=== PATIENT | male | born 1945 | race Caucasian/White ===

== ENCOUNTER 2020-09-27 10:06 | Day surgery (SDC) | payer MEDICARE, OTHER ==
[~2020-09-27] VITALS: Ht 177.8 cm; Wt 81.8 kg
[~2020-09-27 10:06] MED LIST: ASPI-496 PO; CARV12.543 PO; CARV6.2512 PO; CEPH-368 PO; CLOP75TA PO; CYAN1TAB29 PO; FURO20TA3 PO; METF10002 PO; OXYC1TAB7 PO; QUIN1POW PO; SIMV40TA PO; SPIR25TA5 PO; VALS40TA2 PO
[2020-09-27] MEDS ORDERED: ONDANSETRON 2MG/ML, 2ML ONE (10:10)
[2020-09-27] MEDS ORDERED: CEFAZOLIN 1,000 MG ONE ×2 (10:10→12:13)
[2020-09-27] MEDS ORDERED: SODIUM CHLORIDE 0.9% 1,000 ML IV SCH (11:00)
[2020-09-27] MEDS ORDERED: RABE20TA29 PO (11:17)
[2020-09-27] MEDS ORDERED: GLUC15006 PO (11:17)
[2020-09-27] MEDS ORDERED: METANIX PO (11:17)
[2020-09-27] MEDS ORDERED: LMEF1TAB2 PO (11:17)
[2020-09-27] MEDS ORDERED: METF10007 PO (11:17)
[2020-09-27 11:21] VITALS: BP 106/57
[2020-09-27 11:32] LABS: BASOPHILS % (AUTO) 1 % (0-1); EOSINOPHILS % (AUTO) 3 % (1-7); LYMPHOCYTES % (AUTO) 21 % (22-44); MEAN CORPUSCULAR HEMOGLOBIN 31.4 pg (27.5-34.5); MEAN CORPUSCULAR HGB CONC 33.5 g/dL (33.2-36.2); MEAN PLATELET VOLUME 8.1 fL (7.4-10.4); MONOCYTES % (AUTO) 9 % (2-9); NEUTROPHILS % (AUTO) 67 % (42-75); PLATELET COUNT 226 x10^3/uL (130-400); RED BLOOD COUNT 4.22 x10^6/uL (4.38-5.82); RED CELL DISTRIBUTION WIDTH 12.4 % (9.4-14.8)
[2020-09-27 11:33] LABS: MD NO
[2020-09-27 11:41] LABS: ANION GAP 5 mmol/L (5-15); CALCIUM 8.8 mg/dL (8.5-10.1); CHLORIDE 103 mmol/L (98-107)
[2020-09-27 11:42] LABS: CREATININE 1.36 mg/dL (0.7-1.3)
[2020-09-27] MEDS ORDERED: FENTANYL PF 250 MCG/5ML ONE (11:51)
[2020-09-27] MEDS ORDERED: PROPOFOL 50 ML ONE (11:51)
[2020-09-27] MEDS ORDERED: LIDOCAINE 2%, 20ML ONE (12:12)
[2020-09-27] MEDS ORDERED: Hold all anticoagulants for 24 hours MC PRN (13:30)
[2020-09-27] MEDS ORDERED: FENTANYL PF 100 MCG/2ML IV PRN (13:30)
[2020-09-27] MEDS ORDERED: PROMETHAZINE 25 MG/ML, 1ML IVPush PRN (13:30)
[2020-09-27] MEDS ORDERED: ONDANSETRON 2MG/ML, 2ML IVPush PRN (13:30)
[2020-09-27] MEDS ORDERED: EPHEDRINE 50 MG/ML, 1ML IM PRN (13:30)
[2020-09-27] MEDS ORDERED: OXYcodone 5 MG/5 ML ORAL.SOL UDC PO PRN (13:30)
[2020-09-27] MEDS ORDERED: LABETALOL 5MG/ML, 20ML IV PRN (13:30)
[2020-09-27] MEDS ORDERED: [UNRECOGNIZED DRUG - OTHER] PO PRN (13:30)
[2020-09-27] MEDS ORDERED: EPHEDRINE 50 MG/ML, 1ML IVPush PRN (13:30)
[2020-09-27] MEDS ORDERED: DIPHENHYDRAMINE 50 MG/ML, 1ML IVPush PRN (13:30)
[2020-09-27] MEDS ORDERED: DIAZEPAM 5 MG/ML, 2ML IVPush PRN (13:30)
[2020-09-27] MEDS ORDERED: ACETAMINOPHEN 325 MG TABLET PO PRN ×2 (13:30)
[2020-09-27] MEDS ORDERED: morphine SULFATE 10 MG/ML, 1ML IVPush PRN (13:30)
[2020-09-27] MEDS ORDERED: FUROSEMIDE 20 MG TABLET PO SCH (13:30)
[2020-09-27] MEDS ORDERED: CEPHALEXIN 500 MG CAPSULE PO SCH (16:00)
[2020-09-27] MEDS ORDERED: PANTOPRAZOLE 40MG TABLET PO SCH (21:00)
[2020-09-27] MEDS ORDERED: CARVEDILOL 6.25 MG TABLET PO SCH (21:00)
[2020-09-27] MEDS ORDERED: SPIRONOLACTONE 25 MG TABLET PO SCH (21:00)
[2020-09-27] MEDS ORDERED: SODIUM CHLORIDE FLUSH 10ML SYR IVF SCH (21:00)
[2020-09-27] MEDS ORDERED: SIMVASTATIN 40 MG TABLET PO SCH (21:00)
[2020-09-27] MEDS ORDERED: metFORMIN 500 MG TABLET PO SCH (21:00)
[2020-09-28] MEDS ORDERED: CARVEDILOL 12.5 MG TABLET PO SCH (09:00)
[2020-09-28] MEDS ORDERED: [UNRECOGNIZED DRUG - MIXTURE] PO SCH (09:00)
[2020-09-28] MEDS ORDERED: ASPIRIN 81 MG TABLET EC PO SCH (09:00)
[2020-09-28] MEDS ORDERED: CLOPIDOGREL 75 MG TABLET PO SCH (09:00)
[2020-09-28] MEDS ORDERED: TEMPLATE NON-FORMULARY MED. (Cyanocobalamin/Folic Acid** (Vitamin B12-Folic Acid Tablet**) PO SCH (09:00)
[2020-09-28] MEDS ORDERED: TEMPLATE NON-FORMULARY MED. (Glucosamine Hcl** 1,500 MG) PO SCH (09:00)
[2020-09-28] MEDS ORDERED: LOSARTAN 25MG TABLET PO SCH (09:00)
[2020-09-29] MEDS ORDERED: MULTIVITAMINS/MINERALS TABLET PO SCH (09:00)
[2020-09-30] MEDS ORDERED: FUROSEMIDE 20 MG TABLET PO SCH (09:00)
== END 2020-09-27 15:55 | disposition home or self-care (01) ==
LOC: CACL 10:06
PROVIDERS: ATTEND Internal Medicine Cardiovascular Disease
DX: Z45.02 Encounter for adjustment and management of automatic implantable cardiac defibrillator (principal); I25.5 Ischemic cardiomyopathy; I42.0 Dilated cardiomyopathy; I50.22 Chronic systolic (congestive) heart failure; I25.2 Old myocardial infarction; I49.01 Ventricular fibrillation; Z79.82 Long term (current) use of aspirin; Z79.84 Long term (current) use of oral hypoglycemic drugs; Z79.899 Other long term (current) drug therapy; Z87.891 Personal history of nicotine dependence
CPT/HCPCS: 33262; 36415; 80048; 85025; C1722; J0690; J2405; J2704; J3010; 33240; 33270